=== PATIENT | female | born 1990 | race Caucasian/White ===

== ENCOUNTER 2019-06-24 16:36 | Emergency (ER) | payer OTHER ==
[~2019-06-24] VITALS: Ht 157.5 cm; Wt 61.2 kg
[2019-06-24] MEDS ORDERED: NORCO 5-325 TA1 EAC1 PO (18:45)
[2019-06-24] MEDS ORDERED: IBUPROFEN 800800 M1 PO (18:45)
[2019-06-24 18:49] VITALS: BP 130/74
== END 2019-06-24 18:49 | disposition home or self-care (01) ==
LOC: ER 16:36
DX: H60.92 Unspecified otitis externa, left ear (principal)

== ENCOUNTER 2019-09-24 12:39 | Emergency (ER) | payer OTHER ==
[~2019-09-24] VITALS: Ht 152.4 cm; Wt 63.5 kg
[~2019-09-24 12:39] MED LIST: IBUPROFEN 800800 M1 PO; NORCO 5-325 TA1 EAC1 PO
[2019-09-24] MEDS ORDERED: IBUPROFEN 600600 M1 PO (13:55)
[2019-09-24 14:19] VITALS: BP 129/89
== END 2019-09-24 14:19 | disposition home or self-care (01) ==
LOC: ER 12:39
DX: M79.641 Pain in right hand (principal)